=== PATIENT | female | born 1975 | race Caucasian/White ===

== ENCOUNTER 2018-01-15 20:47 | Inpatient (IN) | payer OTHER ==
[~2018-01-15] VITALS: Ht 170.2 cm; Wt 91.0 kg
[2018-01-15 22:07] LABS: BASOPHIL % 0.7 % (0-2); PLATELET COUNT 293 x10^3mcL (130-400); RED CELL DISTRIBUTION WIDTH 12.7 % (11.5-14.5)
[2018-01-15 22:17] LABS: CALCIUM 8.2 mg/dL (8.5-10.1); CARBON DIOXIDE 21.8 mmol/L (21-32); CHLORIDE SERUM 106 mmol/L (98-107); CREATININE SERUM 0.8 mg/dL (0.6-1.0); GFR1 > 60 mL/min; GLUCOSE SERUM 108 mg/dL (74-106); POTASSIUM SERUM 3.5 mmol/L (3.5-5.1); SODIUM SERUM 139 mmol/L (136-145)
[2018-01-15 22:20] LABS: BILIRUBIN TOTAL 0.3 mg/dL (0.20-1.00); TOTAL PROTEIN, SERUM 6.5 g/dL (6.4-8.2)
[2018-01-15 22:21] LABS: ALKALINE PHOSPHATASE 108 U/L (46-116); ALT/SGPT 32 U/L (14-59); AST/SGOT 14 U/L (15-37); LIPASE 88 IU/L (73-393)
[2018-01-15 22:22] LABS: ALBUMIN 3.3 g/dL (3.4-5.0)
[2018-01-15 22:46] LABS: AMPHETAMINE QUAL UR NONE DETECTED (NEG <=1000)
[2018-01-16] VITALS (7 sets, daily range): BP systolic 101–141; BP diastolic 49–83
[2018-01-16 00:21] LABS: MAGNESIUM 1.9 mg/dL (1.8-2.4); PHOSPHOROUS 3.3 mg/dL (2.5-4.9)
[2018-01-16 00:23] LABS: T3 TOTAL 1.01 ng/mL
[2018-01-16 00:27] LABS: CHOLESTEROL/HDL RATIO 7.1
[2018-01-16 00:32] LABS: FREE T4 0.86 ng/dL (0.76-1.46); FREE THYROXINE INDEX 1.7 ug/dL (1.4-4.5); T4(THYROXINE) 5.3 ug/dL (4.7-13.3)
[2018-01-16] MEDS ORDERED: RESTORIL30 MG PO (02:03)
[2018-01-16] MEDS ORDERED: FLE10 PO (02:03)
[2018-01-16 05:19] LABS: BASOPHIL % 0.4 % (0-2); PLATELET COUNT 274 x10^3mcL (130-400); RED CELL DISTRIBUTION WIDTH 12.7 % (11.5-14.5)
[2018-01-16 05:33] LABS: CALCIUM 7.8 mg/dL (8.5-10.1); CARBON DIOXIDE 20.9 mmol/L (21-32); CHLORIDE SERUM 110 mmol/L (98-107); CREATININE SERUM 0.8 mg/dL (0.6-1.0); GFR1 > 60 mL/min; GLUCOSE SERUM 122 mg/dL (74-106); POTASSIUM SERUM 4.6 mmol/L (3.5-5.1); SODIUM SERUM 141 mmol/L (136-145)
[2018-01-16] MEDS ORDERED: LAC PO (15:24)
[2018-01-16] MEDS ORDERED: ZOS3PM IV (15:24)
[2018-01-16 20:14] LABS: microscopic required? NO
[2018-01-16 20:18] LABS: urine erythrocyte NEGATIVE (NEGATIVE)
== END 2018-01-16 21:20 | disposition short-term general hospital (02) | DRG 917 ==
LOC: ED 20:47 → IC 23:17
PROVIDERS: Emergency Medicine; Family Medicine Sports Medicine
PROC: 03JY3ZZ Inspection of Upper Artery, Percutaneous Approach (ICD-10-PCS; principal; 2018-01-16)
DX: T42.4X2A Poisoning by benzodiazepines, intentional self-harm, initial encounter (principal); G92 Toxic encephalopathy; F33.2 Major depressive disorder, recurrent severe without psychotic features; E44.0 Moderate protein-calorie malnutrition; G47.33 Obstructive sleep apnea (adult) (pediatric); E78.1 Pure hyperglyceridemia; F42.9 Obsessive-compulsive disorder, unspecified; T48.1X2A Poisoning by skeletal muscle relaxants [neuromuscular blocking agents], intentional self-harm, initial encounter; E78.5 Hyperlipidemia, unspecified; F43.10 Post-traumatic stress disorder, unspecified; X58.XXXA Exposure to other specified factors, initial encounter; Y93.89 Activity, other specified; Z88.5 Allergy status to narcotic agent; Y92.89 Other specified places as the place of occurrence of the external cause; Y99.8 Other external cause status; Z68.31 Body mass index [BMI] 31.0-31.9, adult
CPT/HCPCS: 36556; 83880; 84439; G0480; J1642; J2060; J2543; J7030; Q0092